=== PATIENT | male | born 1990 | race Caucasian/White ===

== ENCOUNTER 2018-05-22 11:56 | Emergency (ER) | payer MEDICAID ==
[2018-05-22 12:20] VITALS: BP 140/88
--- NOTE | 2018-05-22 12:31 | EDPHY ---
H & P Stated Complaint: Injury to right shoulder 05/21/18. Time Seen by Provider: 05/22/18 12:31 HPI/ROS: HPI: This is a 27-year-old male who presents with Chief Complaint: Injury to right shoulder 05/21/18. Location: Right shoulder Quality: Injury Duration: Yesterday Signs and Symptoms: No bleeding, no radiation, no numbness, no weakness, no tingling, no incontinence, + decreased range of motion, no swelling, + pain, no fever Timing: Acute Severity: Moderate Context: Patient was snowboarding yesterday, wearing a helmet, when he caught the edge of his board and fell forward. He reports that he landed on the anterior aspect of his right shoulder. He reports that the area is bruised in sore to touch he also notes decreased range of motion secondary to the pain. He reports he is unable to raise his arm above heart level. Denies LOC/head injury/neck pain/dizziness/nausea/vomiting/amnesia/radiation/weakness. Modifying Factors: No [id number] pain medications Comment: ROS: A comprehensive 10 system review of systems is otherwise negative aside from elements mentioned in the history of present illness. MEDICAL/SURGICAL/SOCIAL HISTORY: Medical history: Hiatal hernia, GERD Surgical history: Denies Social history: Nonsmoker. Moved to the area in September 2017 CONSTITUTIONAL: Polite and cooperative, physically fit young adult white male, awake and alert, no obvious distress HEENT: Atraumatic and normocephalic. NECK: supple, no midline tenderness, flexion 45 degrees, extension 45 degrees, right and left lateral flexion 45 degrees. No meningismus. Cardiovascular: Normal S1/S2, regular rate, regular rhythm, without murmur rub or gallop. EXTREMITIES: 2/2 pulses, strength 5/5, right SHOULDER: No clavicle deformity/ ecchymosis, Arc test abduction to 90, abduction to 45, horizontal flexion 90 , horizontal extension to 15, deltoid strength 5/5. Moderate pain with Neer test/Cortez test (impingement). No Tenderness to palpation over AC joint. DIP/ PIP/MCP flexion/extension intact with good light touch sensation. no deformities , no clubbing, no cyanosis or edema. NEUROLOGICAL: no focal neuro deficits. GCS 15. Light touch sensation intact. SKIN: Warm and dry, no erythema. no rash. Good capillary refill. Source: Patient Exam Limitations: No limitations - Personal History Current Tetanus Diphtheria and Acellular Pertussis (TDAP): Yes - Medical/Surgical History Hx Asthma: No Hx Chronic Respiratory Disease: No Hx Diabetes: No Hx Cardiac Disease: No Hx Renal Disease: No Hx Cirrhosis: No Hx Alcoholism: No Hx HIV/AIDS: No Hx Splenectomy or Spleen Trauma: No Other PMH: Hiatal hernia. Gerd. - Social History Smoking Status: Never smoked Constitutional: Initial Vital Signs Temperature (C) 36.6 C 05/22/18 11:57 Heart Rate 88 05/22/18 11:57 Respiratory Rate 16 05/22/18 11:57 Blood Pressure 140/88 H 05/22/18 11:57 O2 Sat (%) 97 05/22/18 11:57 O2 Delivery Mode Room Air Allergies/Adverse Reactions: amoxicillin Allergy (Verified 05/22/18 12:02) Home Medications: Medication Instructions Recorded Omeprazole 05/22/18 oxyCODONE/APAP 5/325 [Percocet 1 - 2 tab PO Q4H PRN #12 tab 05/22/18 5/325 (*)] Medical Decision Making - Diagnostics Imaging Results: Imaging Impressions Shoulder X-Ray 05/22/18 12:03 Impression: Negative right shoulder radiographs. ED Course/Re-evaluation: Right shoulder x-ray my read shows no fracture, dislocation Placed in sling with orthopedic follow-up. Suspect rotator cuff injury No signs of neurovascular compromise/tenting of skin/compartment syndrome/ extremities and joints examined above and below area of concern and are neurovascularly intact. This patient was seen under the supervision of my secondary supervising physician. I evaluated care for this patient independently. Discussed this patient with Dr. Diaz who did not see the patient. Differential Diagnosis: Shoulder injury differential diagnosis includes but is not limited to clavicle fracture, contusion, AC joint separation, rotator cuff injury, labral tear, humeral head fracture, sprain, scapula fracture. Departure - Departure Disposition: Home, Routine, Self-Care Clinical Impression: Internal impingement of right shoulder Injury of right shoulder Qualifiers: Encounter type: initial encounter Qualified Code(s): S49.91XA - Unspecified injury of right shoulder and upper arm, initial encounter Condition: Good Instructions: Rotator Cuff Injury (ED), How to Use a Sling (ED), Shoulder Sprain (ED) Additional Instructions: Wear the sling while out of bed until seen by Orthopedics Take Tylenol 650 mg every 4 hours and/or Ibuprofen 600 mg every 8 hours with food as needed for pain. Use Percocet every 6 hours as needed for severe/break through pain. Do not use Tylenol and Percocet concomitantly. Apply ice for 30 minutes at a time; 2-3 times per day for the next 1-2 days. Follow up with Orthopedics in 5-7 days at which time they will evaluate and recommend with you if conservative management versus MRI is indicated. The x-rays obtained in the emergency department today demonstrate no evidence of an obvious fracture. Sometimes fractures are not obvious on the initial set of x-rays performed in the ED. For this reason, you should have repeat x-rays performed in 7-10 days if you are having any pain exclude the possibility of an occult fracture. Referrals: Mathew Mayer MD [Medical Doctor] - As per Instructions Prescriptions: oxyCODONE/APAP 5/325 [Percocet 5/325 (*)] 1 - 2 tab PO Q4H PRN #12 tab PRN Reason: Pain, Severe
== END 2018-05-22 12:50 | disposition home or self-care (01) ==
DX: M25.811 Other specified joint disorders, right shoulder (principal); S49.91XA Unspecified injury of right shoulder and upper arm, initial encounter; V00.311A Fall from snowboard, initial encounter; Y93.23 Activity, snow (alpine) (downhill) skiing, snowboarding, sledding, tobogganing and snow tubing; Y92.828 Other wilderness area as the place of occurrence of the external cause; Y99.9 Unspecified external cause status
CPT/HCPCS: A4565